=== PATIENT | female | born 1930 | race Caucasian/White ===

== ENCOUNTER 2017-03-08 14:04 | Emergency (ER) | payer OTHER, MEDICARE ==
--- NOTE | 2017-03-08 14:15 | PDOC ---
History of Present Illness - General Stated Complaint: SHORTNESS OF BREATH Time Seen by Provider: 03/08/17 14:15 - History of Present Illness Initial Comments: 03/08/17 14:15 Ms. Eddy is an 86 yo female with a significant past medical history of dementia and renal failure with bilateral fistulas who presents to the emergency department after momentary loss of consciousness - returned to consciousness by the time EMS arrived. Of note clear fluid leaking from the vicinity of her right fistula as well. The patient denies chest pain, shortness of breath, headache and dizziness. Denies fever, chills, nausea, vomit, diarrhea and constipation. Denies dysuria, frequency, urgency and hematuria. Allergies: Penicillins 03/08/17 17:51 Past History - Past Medical History Allergies/Adverse Reactions: Allergies Allergy/AdvReac Type Severity Reaction Status Date / Time Penicillins Allergy Verified 03/08/17 15:00 Home Medications: Ambulatory Orders Bisacodyl Suppository [Dulcolax Suppository -] 10 mg RC DAILY PRN 03/08/17 Bismuth Tribromoph/Petrolatum [Xeroform Petrolatum Dress] 1 each TP Q48H Calcium Citrate/Vitamin D3 [Calcium Citrate - Vit D3 Tab] 1 each PO HS 03/08/17 Carvedilol [Coreg -] 3.125 mg PO BID 03/08/17 Insulin Lispro [Humalog] 0 unit SQ ACHS PRN 03/08/17 Magnesium Hydroxide [Milk of Magnesia] 30 ml PO PRN PRN 03/08/17 Na Phos,M-B/Na Phos,Di-Ba [Fleet Enema] 118 ml RC ASDIR PRN 03/08/17 Omeprazole 20 mg PO DAILY 03/08/17 Simethicone [Gas Relief] 80 mg PO TID PRN 03/08/17 Simvastatin 20 mg PO HS 03/08/17 Review of Systems - Review of Systems Comments:: 03/08/17 14:15 GENERAL/CONSTITUTIONAL: No fever or chills. No weakness. HEAD, EYES, EARS, NOSE AND THROAT: No change in vision. No ear pain or discharge. No sore throat. CARDIOVASCULAR: No chest pain or shortness of breath RESPIRATORY: No cough, wheezing, or hemoptysis. GASTROINTESTINAL: No nausea, vomiting, diarrhea or constipation. GENITOURINARY: No dysuria, frequency, or change in urination. MUSCULOSKELETAL: No joint or muscle swelling or pain. No neck or back pain. SKIN: No rash NEUROLOGIC: No headache, vertigo, loss of consciousness, or change in strength/ sensation. ENDOCRINE: No increased thirst. No abnormal weight change HEMATOLOGIC/LYMPHATIC: No anemia, easy bleeding, or history of blood clots. ALLERGIC/IMMUNOLOGIC: No hives or skin allergy. *Physical Exam - Physical Exam Comments: 03/08/17 14:15 GENERAL: Awake, alert to baseline, in no acute distress HEAD: No signs of trauma, normocephalic, atraumatic EYES: PERRLA, EOMI, sclera anicteric, conjunctiva clear ENT: Auricles normal inspection, hearing grossly normal, nares patent, oropharynx clear without exudates. Moist mucosa NECK: Normal ROM, supple, no lymphadenopathy, JVD, or masses LUNGS: No distress, speaks full sentences, clear to auscultation bilaterally HEART: Regular rate and rhythm, normal S1 and S2, no murmurs, rubs or gallops, peripheral pulses normal and equal bilaterally. ABDOMEN: Soft, nontender, normoactive bowel sounds. No guarding, no rebound. No masses EXTREMITIES: Normal inspection, Normal range of motion, no edema. No clubbing or cyanosis. NEUROLOGICAL: Cranial nerves II through XII grossly intact. Normal speech, normal gait, no focal sensorimotor deficits SKIN: Warm, Dry, normal turgor, no rashes or lesions noted. 03/08/17 17:50 ED Treatment Course - LABORATORY CBC & Chemistry Diagram: 03/08/17 15:21 03/08/17 15:21 Medical Decision Making - Medical Decision Making 03/08/17 17:10 Ms. Eddy presented for evaluation of LOC onsite. Glucose found to be 36 - amp of dextrose given as well as orange juice with significant increase in LOC. Also, serosanguinous fluid from Right fistula site. Duplex study performed with no concerning findings. Repeat blood glucose 182. Will D/C to care facility as normalized to baseline. *DC/Admit/Observation/Transfer Diagnosis at time of Disposition: Hypoglycemia - Discharge Dispostion Disposition: [facility] Condition at time of disposition: Improved - Patient Instructions Printed Discharge Instructions: DI for Hypoglycemia
--- NOTE | 2017-03-08 14:33 | PDOC ---
Attending Attestation - Resident Resident Name: Domingo Sue - ED Attending Attestation I have performed the following: I have examined & evaluated the patient, The case was reviewed & discussed with the resident, I agree w/resident's findings & plan, Exceptions are as noted - HPI HPI: 03/08/17 14:32 Dyspnea and Cough - Physicial Exam PE: 03/08/17 14:32 VSS,NAD, no Hypoxia - Medical Decision Making 03/08/17 14:[address] Sue's Assessment and Plan
[2017-03-08 14:59] VITALS: TEMP 98.4
[2017-03-08 15:19] VITALS: BMI 24.3
[2017-03-08 15:37] LABS: MCH 30.3 pg (25.7-33.7); MCHC 32.6 g/dl (32.0-36.0); MEAN CELL VOLUME 92.9 fl (80-96); MEAN PLT VOLUME 8.2 fl (7.5-11.1); NEUTROPHILS 79.4 % (42.8-82.8); PLATELET COUNT 165 K/MM3 (134-434); RDW 15.7 % (11.6-15.6)
[2017-03-08 16:01] LABS: ANION GAP 9 (8-16); BILIRUBIN,TOTAL 0.6 mg/dL (0.2-1.0); CALCIUM 7.1 mg/dL (8.5-10.1); CO2 28 mmol/L (21-32); CREATININE 5.3 mg/dL (0.55-1.02); SGPT/ALT 46 U/L (12-78)
[2017-03-08 16:03] LABS: ALK PHOS 326 U/L (45-117); TOT PROT 5.4 g/dl (6.4-8.2)
[2017-03-08 16:04] LABS: SGOT/AST 31 U/L (15-37)
[2017-03-08 16:05] LABS: GLUCOSE,RANDOM 36 mg/dL (74-106)
[2017-03-08] MEDS ORDERED: DEXTROSE 50%-WATER 25 GM/50 ML DISP.SYRIN ONE (16:06)
[2017-03-08] MEDS ORDERED: DEXTROSE 50%-WATER - 25 GM/50 ML VIAL IVPUSH ONE (16:17)
[2017-03-08 17:32] VITALS: BP 104/91; PULSE 97
--- NOTE | 2017-03-09 13:47 | EKG ---
Test Reason : Blood Pressure : / mmHG Vent. Rate : 086 BPM Atrial Rate : 086 BPM P-R Int : 148 ms QRS Dur : 074 ms QT Int : 372 ms P-R-T Axes : 035 -30 -05 degrees QTc Int : 445 ms NORMAL SINUS RHYTHM LEFT ANTERIOR HEMIBLOCK LOW VOLTAGE QRS INFERIOR INFARCT , AGE UNDETERMINED CANNOT RULE OUT ANTERIOR INFARCT , AGE UNDETERMINED ABNORMAL ECG NO PREVIOUS ECGS AVAILABLE REPEAT EKG IF CLINICALLY INDICATED Confirmed by QASIM STEVEN MD ([id number] on 03/09/2017 1:46:44 PM Referred By: Confirmed By:QASIM STEVEN MD
== END 2017-03-08 19:52 ==
LOC: JER 14:04
DX: E11.649 Type 2 diabetes mellitus with hypoglycemia without coma (principal); Z79.4 Long term (current) use of insulin; T82.898A Other specified complication of vascular prosthetic devices, implants and grafts, initial encounter; I12.0 Hypertensive chronic kidney disease with stage 5 chronic kidney disease or end stage renal disease; E11.22 Type 2 diabetes mellitus with diabetic chronic kidney disease; N18.6 End stage renal disease; N17.8 Other acute kidney failure; Z99.2 Dependence on renal dialysis; L89.100 Pressure ulcer of unspecified part of back, unstageable; L89.322 Pressure ulcer of left buttock, stage 2
CPT/HCPCS: 36415; 80053; 85025; 93005; 93010; 93971; 99285-25